=== PATIENT | female | born 1965 ===

== ENCOUNTER 2024-12-12 16:04 | Outpatient (AMB) | payer SELFPAY ==
--- OUTSIDE RECORDS SUMMARY | 2024-12-12 17:01 | XMS_ITS | Clinical Summary ---
Author Organization [address] Address [address] [facility] [place] Phone Care Team Providers Care Domestic Housekeeper Name Role Phone Melissa Barboza MD Primary Care Prov ider Allergies Active Allergy Reactions Criticality Noted Date Comments Pollen Extracts 06/20/2023 Medications AMOXICILLIN ORAL Take by mouth as needed. Prior to dental work Active metFORMIN XR (GLUCOPHAGE-XR) 500 mg 24 hr tablet Take 1 tablet (500 mg total) by mouth 2 (two) times a day with meals. 04/24/2024 Active Active Problems Problem Noted Date Diagnosed Date Prediabetes 07/18/2024 Mixed hyperlipidemia 07/18/2024 Tarsal tunnel syndrome 06/20/2023 Overview (03/25/2024): Right side. Seeing Dr. Mcdermott Left knee pain 07/17/2018 Overview (03/25/2024): Did PT Allergic rhinitis 08/28/2008 Overview (03/25/2024): Allergy Shots-- Dr. 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 Immunizations Name Administration Dates Next Due Td Tetanus diptheria (Tdvax) 7yo and older 07/17 Tdap Tetanus diptheria acell ular pertussis (Boostrix; Adacel) 7yo and older 12/01/2006 Surgical History Surgery Date Site/Laterality Comments HYSTERECTOMY 04/18/2005 PROCEDURE: HISTORICAL HYSTERECTOMY; COMMENT: partially hysterectomy TONSILLECTOMY 04/18/1975 PROCEDURE: HISTORICAL TONSILLECTOMY EYE SURGERY 04/18/2001 PROCEDURE: HISTORICAL EYE SURGERY TOTAL KNEE ARTHROPLASTY 02/25/2022 Left PROCEDURE: [place] ARTHRP KNE CONDYLE&PLATU MEDIAL&LAT COMPARTMENTS; COMMENT: NEOS Medical History Medical History Date Comments Seasonal rhinitis DX:Seasonal rh initis Left knee pain 07/17/2018 DX:Left knee james n; COMMENT: Did PT Tarsal tunnel syndrome 06/20/2023 DX:Tarsal tunnel syndrome Family History Medical History Relation Name Comments Other cancer Aunt cervival ca No Known Problems Brother No Known Problems Daughter Coronary artery disease Father Other: pacemaker Father Diabetes Maternal Grandfather Glaucoma Maternal Grandfather Hypertension Maternal Grandfather Diabetes Mother Hypertension Mother Prostate cancer Paternal Grandfather Lung cancer Paternal Grandmother No Known Problems Son Relation Name Status Comments Aunt Brother Alive X2 Daughter Alive Father CAD, s/p pacema ker Maternal Grandfather Maternal Grandmother Mother Alive DM, HTN Paternal Grandfather Paternal Grandmother Son Alive X2 Social History Tobacco Use Types Packs/Day Years Used Date Smoking Tobacco: Never Smokeless Tobacco: Never Tobacco Cessation:Counseling Given: Not Answered Alcohol Use Standard Drinks/Week Comments Yes 0 (1 standard drink = 0.6 oz pur e alcohol) Housing Instability Answer Date Recorde d Are you worried that in the next 2 months you may not have stable housing? No 06/24/2024 Food Access & Nutrition Answer Date Rec orded Do you have access to a vari ety of food including fruits and vegetables? Yes 06/24/2024 Access to Healthcare Answer Date Record ed Within the last 3 months, ho w many times did you visit the emergency department for your medical care? 0 06/24/2024 Health Literacy Answer Date Recorded How often do you need to hav e someone help you when you read instructions, pamphlets, or other written material from your doctor or pharmacy? Never 06/24/2024 Caregiver: How often do you need to have someone help you when you read instructions, pamphlets, or other written material from your doctor or pharmacy? Not on file 06/24/2024 Financial Risk Answer Date Recorded How hard is it for you to pa y for the very basics like food, housing, medical care, and air conditioning / heating? Not very hard 06/24/2024 Transportation Answer Date Recorded Has the lack of transportati on kept you from meetings, work, or from getting things needed for daily living? No Has the lack of transportati on kept you from medical appointments or from getting medications? No 06/24/2024 Social Isolation Answer Date Recorded How often do you feel lonely or isolated from th ose around you? Never 06/24/2024 Food Risk Answer Date Recorded Within the past 12 months we worried whether our food would run out before we got money to buy more. Never true 06/24/2024 Within the past 12 months th e food we bought just didn't last and we didn't have money to get more. Never true 06/24/2024 Dependent Care Answer Date Recorded Do you need help finding or paying for care for your loved ones. For example, child health associate or elderly care for an older adult? No 06/24/2024 Education Answer Date Recorded Do you think completing more education or training, like finishing a GED, going to college, or learning a trade, would be helpful for you? N/A 06/24/2024 Employment and Income Answer Date Recor ded During the last four weeks, have you been actively looking for work? No 06/24/2024 Living Situation Answer Date Recorded What is your living situation? 0 06/24/2024 Comments No Sex and Gender Information Value Date Recorded Sex Assigned at Not on file Legal Sex Female 7:11 AM EST Gender Identity Not on file Sexual Orientation Not on file Obstetrics History Last Filed Vital Signs Vital Sign Reading Time Taken Comments Blood Pressure 140/96 2024 2:59 PM EDT Pulse 78 2024 2:59 PM EDT Temperature 36.1 C (97 F) 2024 2:59 PM EDT Respiratory Rate 16 2024 2:59 PM EDT Oxygen Saturation - - Inhaled Oxygen Concentration - - Weight 109 kg (240 lb 12.8 oz) 2024 2:59 P M EDT Height 170.2 cm (5' 7 ) 2024 2:59 PM EDT Body Mass Index 37.71 2024 2:59 PM EDT Plan of Treatment Upcoming Encounters Date Type Department Care Team (Late st Contact Info) Description 06/27/2025 3:00 PM EDT Office Visit Adult Medicine [facility] [address] [place] [phone] Melissa Barboza MD [address] [place] [phone] Health Maintenance Due Date Last Done Comments Hepatitis B Vaccines (1 of 3 - 19+ 3-dose series) 06/24/1986 Pneumococcal Vaccine: 50+ Years (1 of 1 - PCV) 06/24/2017 Zoster Vaccines (1 of 2) 06/24/2017 HIV Screening 03/27/2022 Social Influencers of Health Screening 06/24/2025 06/24/2024 Breast Cancer Screening 11/10/2025 11/11/19 24, 11/11/2023 Cervical Cancer Screening: Pap Smear 05/23/2026 05/23/2023 Cholesterol Screening (Lipid Panel) 06/22/2028 06/23/2023 DTaP,Tdap,and Td Vaccines (3 - Td or Tdap) 07/17/2028 07/17/2018, 12/01/2006 Colorectal Cancer Screening: Colonoscopy 12/04/2028 12/04/2018 Hepatitis C Screening Completed 07/22/2013 Depression Screening Completed 06/24/2024 COVID-19 Vaccine Discontinued HIB Vaccines Aged Out No longer eligi ble based on patient's age to complete this topic HPV Vaccines Aged Out No longer eligi ble based on patient's age to complete this topic Hepatitis A Vaccines Aged Out No long er eligible based on patient's age to complete this topic IPV Vaccines Aged Out No longer eligi ble based on patient's age to complete this topic Influenza Vaccine Discontinued MMR Vaccines Aged Out No longer eligi ble based on patient's age to complete this topic Meningococcal ACWY Vaccine Aged Out N o longer eligible based on patient's age to complete this topic Meningococcal B Vaccine Aged Out No l onger eligible based on patient's age to complete this topic RSV Immunization Patients Under 20 months Aged Out No longer eligible based on patient's age to complete this topic Varicella Vaccines Aged Out No longer eligible based on patient's age to complete this topic Procedures Procedure Name Priority Date/Time Associated Diagnosis Comments EXTERNAL MAMMOGRAM REPORT Routine 11/11/2023 3:29 PM EDT LIPID PANEL Routine 06/23/2023 PAP SMEAR Routine 05/23/2023 COLONOSCOPY Routine 12/04/2018 HEPATITIS C SCREENING Routine 07/22/2013 from Last 3 Months or Most Recently Relevant to Health Maintenance Results * External Mammogram Report (11/11/2023 3:29 PM EDT) Anatomical Region Laterality Modality Mammography [facility] Provider IMG BI PROCEDURES Final R esult * (ABNORMAL) Lipid panel (06/23/2023) LDL/HDL Ratio 4 0 - 4 Triglycerides 142 0 - 150 mg/dL Cholesterol 204(A) 0 - 200 mg/dL HDL 47 >=40 mg/dL LDL Cholesterol 129(A) 0 - 100 mg/dL Blood Venous blood specimen / Unknown Result [facility] Provider LAB BLOOD ORDERABLES Xochitl l Result * Pap Smear (05/23/2023) Pap smear NO INTERPRETATION , ABSTRACTED [facility] Provider HEALTH MAINTENANCE Final Result * Colonoscopy (12/04/2018) Colonoscopy NO INTERPRETATION , ABSTRACTED Anatomical Region Laterality Modality Other [facility] Provider HEALTH MAINTENANCE Final Result * Hepatitis C Screening (07/22/2013) Hepatitis C Screening ABSTRACTED [facility] Provider HEALTH MAINTENANCE Final Result from Last 3 Months or Most Recently Relevant to Health Maintenance Insurance [facility] Care Teams Domestic Housekeeper Relationship Specialty Start Date End Date Melissa Barboza MD [address] [place] [phone] PCP - General 03/24/22
--- OUTSIDE RECORDS SUMMARY | 2024-12-12 17:01 | XMS_ITS ---
Author Name [facility] Organization Unknown History of Medication Use Medication Directions Dispensed Refills Start Date End Date Stat metformin ER 500 mg tablet,extended release 24 hr TAKE 1 TABLET BY MOUTH TWICE A DAY WITH FOOD active Problems Problem Status Onset Date Problem Type Date of Resoluti on Source C-reactive protein above reference range active 2023-09-20 [facility]Act [facility] Obesity active 2023-09-04 ProblemAct [facility] Prediabetes active 2023-09-20 ProblemAct [facility] Endocrine/metabolic screening active 2023-08-30 ProblemAct [facility] Hyperlipidemia active 2023-09-20 ProblemAct [facility] Encounters Encounter Type Encounter Reason Primary Diagnosis Location Date Ambulatory [facility] 09/05/2024 Ambulatory [facility] 06/12/2024 Ambulatory [facility] 05/08/2024 Care Team Organization Name Specialty Phone Email Start Date End Da te [facility] Primary Care 07/17/2024 [facility] of the [facility] ([facility] 03/02/2024
== END 2024-12-12 16:10 | disposition home or self-care (01) ==
LOC: HO.HMGAL 16:04
PROVIDERS: Visit Provider Registered Nurse Emergency
DX: J30.89 Other allergic rhinitis (principal)
CPT/HCPCS: 95117; 95165

== ENCOUNTER 2025-01-07 16:23 | Outpatient (AMB) | payer BC, SELFPAY | END 2025-01-07 16:26 | disposition home or self-care (01) | LOC: HO.HMGAL 16:23 | PROVIDERS: Visit Provider Registered Nurse Emergency | DX: J30.89 Other allergic rhinitis (principal) | CPT/HCPCS: 95117; 95165 ==

== ENCOUNTER 2025-02-04 16:04 | Outpatient (AMB) | payer BC, SELFPAY | END 2025-02-04 16:04 | disposition home or self-care (01) | LOC: HO.HMGAL 16:04 | PROVIDERS: PCP Internal Medicine; Visit Provider Registered Nurse Emergency | DX: J30.89 Other allergic rhinitis (principal) | CPT/HCPCS: 95117; 95165 ==

== ENCOUNTER 2025-03-04 16:10 | Outpatient (AMB) | payer BC, SELFPAY ==
--- OUTSIDE RECORDS SUMMARY | 2025-03-05 06:54 | XMS_ITS | Clinical Summary ---
Author Organization [address] Address [address] [facility] [place] Phone Care Team Providers Care Cnc Lathe Machine Operator Name Role Phone Melissa Barboza MD Primary [...] after complications from giving to triplets Immunizations Immunization Administration Dates Next Due Td Tetanus diptheria (Tdvax) 7yo and older 07/17 Tdap Tetanus diptheria acell ular pertussis (Boostrix; Adacel) 7yo and older 12/01/2006 Surgical History Surgery Date Site/Laterality Comments HYSTERECTOMY 04/18/2005 PROCEDURE: HISTORICAL HYSTERECTOMY; COMMENT: partially hysterectomy TONSILLECTOMY 04/18/1975 PROCEDURE: HISTORICAL TONSILLECTOMY EYE SURGERY 04/18/2001 PROCEDURE: HISTORICAL EYE SURGERY TOTAL KNEE ARTHROPLASTY 02/25/2022 Left PROCEDURE: [place] ARTHRP KNE CONDYLE&PLATU MEDIAL&LAT COMPARTMENTS; COMMENT: [facility] [...] care for your loved ones. For example, early childhood educator aide or elderly care for an older adult? [...] Date Recorded What is your living situation? Unrecognized valu e 06/24/2024 Comments No Sex and Gender Information [...] 3:00 PM EDT Office Visit Adult Medicine [facility] [address] [place] [address] Melissa Barboza MD [address] [place], [place] Health Maintenance Due Date Last Done Comments [...] 12/01/2006 Colorectal Cancer Screening: Colonoscopy 12/04/2028 12/04/2018 RSV Immunization Adult Patients (1 - 1-dose 75+ series) 06/24/2042 Hepatitis C Screening Completed 07/22/2013 Depression Screening [...] PM EDT) Anatomical Region Laterality Modality Mammography Historical Provider IMG BI PROCEDURES Final R esult * (ABNORMAL) Lipid panel (06/23/2023) LDL/HDL Ratio 4 0 - 4 Triglycerides 142 0 - 150 mg/dL Cholesterol 204(A) 0 - 200 mg/dL HDL 47 >=40 mg/dL LDL Cholesterol 129(A) 0 - 100 mg/dL Blood Venous blood specimen / Unknown Historical Provider LAB BLOOD ORDERABLES Xochitl l Result * Pap Smear (05/23/2023) Pap smear NO INTERPRETATION , ABSTRACTED Historical Provider HEALTH MAINTENANCE Final Result * Colonoscopy (12/04/2018) Pathologist On license of [facility] Colonoscopy NO INTERPRETATION , ABSTRACTED Anatomical Region Laterality Modality Other Historical Provider HEALTH MAINTENANCE Final Result * Hepatitis C Screening (07/22/2013) Hepatitis C Screening ABSTRACTED us Historical Provider HEALTH MAINTENANCE Final Result from Last 3 Months or Most Recently Relevant to Health Maintenance Insurance [facility] Care Teams Cnc Lathe Machine Operator Relationship Specialty Start Date End Date Melissa Barboza MD [address] [place] [phone] PCP - General 03/24/22
== END 2025-03-04 16:11 | disposition home or self-care (01) ==
LOC: HO.HMGAL 16:10
PROVIDERS: PCP Internal Medicine; Visit Provider Registered Nurse Emergency
DX: J30.89 Other allergic rhinitis (principal)
CPT/HCPCS: 95117; 95165

== ENCOUNTER 2025-04-03 16:07 | Outpatient (AMB) | payer BC, SELFPAY ==
--- OUTSIDE RECORDS SUMMARY | 2025-04-03 20:52 | XMS_ITS | Clinical Summary ---
Author Organization [address] Address [address] [facility] [place] Phone Care Team Providers Care Snack Bar Cashier Name Role Phone Melissa Barboza MD Primary [...] SURGERY TOTAL KNEE ARTHROPLASTY 02/25/2022 Left PROCEDURE: [place] ARTHRP KNE CONDYLE&PLATU MEDIAL&LAT COMPARTMENTS; COMMENT: [facility]OS [...] care for your loved ones. For example, children's literature professor or elderly care for an older adult? [...] on file Sexual Orientation Not on file Last Filed Vital Signs Vital Sign Reading [...] 3:00 PM EDT Office Visit Adult Medicine [facility] [address] [place], [place] [phone] Melissa Barboza MD [address] [place], [place] Health Maintenance Due Date Last Done [...] R esult * (ABNORMAL) Lipid panel (06/23/2023) Pathologist [facility] LDL/HDL Ratio 4 0 - 4 Triglycerides 142 0 - 150 mg/dL Cholesterol 204(A) 0 - 200 mg/dL HDL 47 >=40 mg/dL LDL Cholesterol 129(A) 0 - 100 mg/dL Blood Venous blood specimen / Unknown [facility] Provider LAB BLOOD ORDERABLES Xochitl l Result * Pap Smear (05/23/2023) Pap smear NO INTERPRETATION , ABSTRACTED Historical Provider HEALTH MAINTENANCE Final Result * Colonoscopy (12/04/2018) Pathologist [facility] Colonoscopy NO INTERPRETATION , ABSTRACTED Anatomical Region Laterality Modality Other Historical Provider HEALTH MAINTENANCE Final Result * Hepatitis C Screening (07/22/2013) Pathologist [facility] Hepatitis C Screening ABSTRACTED us Historical Provider HEALTH MAINTENANCE Final Result from Last 3 Months or Most Recently Relevant to Health Maintenance Insurance [facility] Care Teams Snack Bar Cashier Relationship Specialty Start Date End Date Melissa Barboza MD [address] [place] [phone] PCP - General 03/24/22
== END 2025-04-03 16:08 | disposition home or self-care (01) ==
LOC: HO.HMGAL 16:07
PROVIDERS: PCP Internal Medicine; Visit Provider Registered Nurse Emergency
DX: J30.89 Other allergic rhinitis (principal)
CPT/HCPCS: 95117; 95165